=== PATIENT | male | born 1995 | race Caucasian/White ===

== ENCOUNTER 2021-04-05 09:41 | Inpatient (IN) ==
[2021-04-05] MEDS ORDERED: Ondansetron ODT 4 MG TAB.RAPDIS SL ONE (10:26)
[2021-04-05] MEDS ORDERED: Ondansetron ODT 4 MG TAB.RAPDIS ONE (10:38)
[2021-04-05] MEDS ORDERED: 0.9 % Sodium Chloride 1,000 ML IVC ONE ×2 (10:50→12:06)
[2021-04-05] MEDS ORDERED: Ondansetron 4 MG/2 ML VIAL IVP ONE (11:05)
[2021-04-05 11:08] LABS: Influenza A PCR Negative (Negative); Influenza B PCR Negative (Negative); Resp. Syncytial Virus PCR Negative (Negative)
[2021-04-05 11:09] LABS: SARS-CoV-2 by PCR (In House) Positive (Negative)
[2021-04-05 11:23] LABS: Basophils % 0.5 %; Eosinophils % 0.2 %; Hemoglobin 15.9 g/dL (12.9-16.9); Immature Granulocytes % 0.4 % (0-4); Lymphocytes # 1.2 K/mcL (0.6-4.6); Lymphocytes % 20.8 %; Mean Corpuscular HGB Conc 33.8 g/dL (31.6-35.5); Mean Corpuscular Hemoglobin 31.5 pg (28.0-33.3); Mean Corpuscular Volume 93.1 fL (83.0-100.0); Mean Platelet Volume 12.6 fL (9.4-12.4); Monocytes # 0.5 K/mcL (0.0-1.3); Monocytes % 8.7 %; Neutrophils # 3.9 K/mcL (1.6-8.9); Platelet Count 187 K/mcL (140-400); Red Blood Count 5.05 M/mcL (4.19-5.50); Red Cell Distribution Width 12.2 % (11.5-14.5); Segmented Neutrophils % 69.4 %; White Blood Count 5.6 K/mcL (4.3-11.1)
[2021-04-05 11:27] LABS: VBG HCO3 15 mEq/L (21-27); VBG PCO2 38 mmHg (41-51); VBG PH 7.19 pH Units (7.32-7.42); VBG PO2 53 mmHg (25-50)
[2021-04-05 11:44] LABS: BUN/Creatinine Ratio 15 (6-26); Blood Urea Nitrogen 21 mg/dL (6-20); Calcium 9.4 mg/dL (8.6-10.3); Carbon Dioxide 13 mEq/L (23-29); Chloride 93 mEq/L (98-107); Glucose 604 mg/dL (70-105); Osmolality,Calculated 301 (280-300); Sodium 130 mEq/L (136-145); eGFR For African Americans > 60 (> 60); eGFR For Non-African Americans > 60 (> 60)
[2021-04-05] MEDS ORDERED: Insulin Regular, Human 100 UNIT/ML IV ONE ×2 (12:05→14:21)
[2021-04-05] MEDS ORDERED: Insulin Human Regular 7 UNIT in 0.9 % Sodium Chloride 10 ML IV ONE (12:44)
[2021-04-05 14:12] LABS: Bilirubin,Urine Negative (Negative); Blood,Urine Negative (Negative); Clarity,Urine Clear (Clear); Color,Urine Colorless (Yellow); Glucose,Urine (UA) >=1000 mg/dL (Normal); Ketones,Urine >150 mg/dL (Negative); Leukocyte Esterase,Urine Negative (Negative); Mucus,Urine Few per lpf (None-Few); Nitrite,Urine Negative (Negative); Protein,Urine Trace mg/dL (Neg-Trace); Specific Gravity,Urine > 1.030 (1.010-1.025); Squamous Epithelial Cell,Urine Few per hpf (None-Few); Urobilinogen,Urine Normal (Normal); WBC,Urine 0-3 per hpf (0-3)
[2021-04-05] MEDS ORDERED: Insulin Regular, Human 100 UNIT/ML IV PRN (14:21)
[2021-04-05] MEDS ORDERED: *HR* Dextrose 50 % in Water (Syg) 50 ML SYRINGE IVP PRN (14:21)
[2021-04-05] MEDS ORDERED: Ibuprofen 200 MG TABLET PO PRN (17:52)
[2021-04-05] MEDS: Insulin LISPRO 300 UNITS/3 ML VIAL SUBQ SCH (20:59)
[2021-04-05] MEDS: 0.9 % Sodium Chloride 1,000 ML IVC SCH (20:59)
[2021-04-05] MEDS ORDERED: Insulin DETEMIR 100 UNIT/ML X5UNITS SUBQ SCH (21:00)
[2021-04-05 23:23] VITALS: O2SAT 98
[2021-04-06 03:46] VITALS: TEMP 98.5
[2021-04-06 05:43] LABS: Basophils % 0.4 %; Eosinophils % 0.5 %; Hematocrit 41.1 % (37.5-50.1); Immature Granulocytes % 0.5 % (0-4); Lymphocytes # 2.3 K/mcL (0.6-4.6); Lymphocytes % 41.2 %; Mean Corpuscular HGB Conc 32.4 g/dL (31.6-35.5); Mean Corpuscular Hemoglobin 29.8 pg (28.0-33.3); Mean Corpuscular Volume 92.2 fL (83.0-100.0); Mean Platelet Volume 11.6 fL (9.4-12.4); Monocytes # 0.5 K/mcL (0.0-1.3); Monocytes % 8.5 %; Platelet Count 183 K/mcL (140-400); Red Blood Count 4.46 M/mcL (4.19-5.50); Red Cell Distribution Width 12.5 % (11.5-14.5); Segmented Neutrophils % 48.9 %; White Blood Count 5.6 K/mcL (4.3-11.1)
[2021-04-06 05:44] LABS: Hemoglobin 13.3 g/dL (12.9-16.9); Neutrophils # 2.7 K/mcL (1.6-8.9)
[2021-04-06] MEDS ORDERED: *HR* Enoxaparin 40 MG/0.4 ML SYRINGE SQ SCH (06:00)
[2021-04-06 07:03] LABS: BUN/Creatinine Ratio 11 (6-26); Blood Urea Nitrogen 13 mg/dL (6-20); Calcium 8.3 mg/dL (8.6-10.3); Carbon Dioxide 21 mEq/L (23-29); Chloride 106 mEq/L (98-107); Glucose 81 mg/dL (70-105); Osmolality,Calculated 283 (280-300); Potassium 4.2 mEq/L (3.5-5.1); Sodium 137 mEq/L (136-145); eGFR For African Americans > 60 (> 60); eGFR For Non-African Americans > 60 (> 60)
[2021-04-06 07:46] VITALS: BP 135/58
[2021-04-06] MEDS: Insulin LISPRO 300 UNITS/3 ML VIAL SUBQ SCH (07:53)
[2021-04-06] MEDS: 0.9 % Sodium Chloride 1,000 ML IVC SCH (07:54)
[2021-04-06] MEDS ORDERED: Ascorbic Acid 500 MG TABLET PO SCH (09:00)
[2021-04-06 09:16] VITALS: PULSE 75
== END 2021-04-06 11:01 | disposition home or self-care (01) | DRG 420 ==
LOC: EMEROOARM 09:41 → 2NNU 15:02
PROVIDERS: ADMIT Family Medicine; ATTEND Family Medicine